=== PATIENT | female | born 1955 | race Caucasian/White ===

== ENCOUNTER 2016-08-11 08:23 | Outpatient (CLI) | payer OTHER ==
[2016-08-11 09:15] LABS: ALT (SGPT) 17 U/L (0-55); AST (SGOT) 22 U/L (5-34); Albumin 4.2 g/dL (3.5-5.0); Alkaline Phosphatase 63 U/L (40-150); Anion Gap 15 mmol/L (10-20); BUN (Urea Nitrogen) 16 mg/dL (9.8-20.1); Bilirubin, Direct 0.2 mg/dL (0.1-0.3); Bilirubin, Total 0.5 mg/dL (0.2-1.2); Calc. Creatinine Clearance 0 mL/min (70-130); Calcium 9.6 mg/dL (7.8-10.44); Carbon Dioxide 24 mmol/L (22-29); Cardiac Risk 3.3 (Less than 4.5); Chloride 106 mmol/L (98-107); Cholesterol 166 mg/dL (< 200 Desired); Estimated GFR-MDRD 81; Glucose 91 mg/dL (70-105); HDL Cholesterol 50 mg/dL (>60 Neg Risk); LDL Cholesterol, Calculated 101 mg/dL; Potassium 4.4 mmol/L (3.5-5.1); Protein, Total 7.3 g/dL (6.0-8.3); Sodium 141 mmol/L (136-145); Triglycerides 76 mg/dL (Less than 150)
== END 2016-08-11 08:24 | disposition home or self-care (01) ==
LOC: MADLABBHPM 08:23
PROVIDERS: ATTEND Family Medicine
DX: I10 Essential (primary) hypertension (principal)
CPT/HCPCS: 36415; 80048; 80061; 80076

== ENCOUNTER 2017-02-06 10:47 | Outpatient (CLI) | payer BC, OTHER ==
[2017-02-06 11:36] LABS: #Basophils 0.1 thou/uL (0.0-0.2); #Eosinphils 0.1 thou/uL (0.0-0.7); #Lymphocytes 1.7 thou/uL (1.20-3.40); #Monocytes 0.6 thou/uL (0.11-0.59); #Neutrophils 3.6 thou/uL (1.40-6.50); %Basophils 1.1 % (0.0-1.0); %Eosinophils 1.8 % (0.0-10.0); %Lymphocytes 28.5 % (21.0-51.0); %Monocytes 9.2 % (0.0-10.0); %Neutrophils 59.4 % (42.0-75.0); Hemoglobin 14.5 g/dL (12.0-16.0); Mean Corpuscular HGB CONC 33.3 g/dL (32.0-36.0); Mean Corpuscular Hemoglobin 29.6 pg (27.0-31.0); Mean Platelet Volume 7.5 fL (7.4-10.4); Platelet Count 269 thou/uL (130-400)
[2017-02-06 11:39] LABS: ALT (SGPT) 32 U/L (8-55); AST (SGOT) 27 U/L (5-34); Albumin 4.3 g/dL (3.5-5.0); Alkaline Phosphatase 65 U/L (40-150); Anion Gap 14 mmol/L (10-20); BUN (Urea Nitrogen) 12 mg/dL (9.8-20.1); Bilirubin, Direct 0.2 mg/dL (0.1-0.3); Bilirubin, Total 0.5 mg/dL (0.2-1.2); Calc. Creatinine Clearance 0 mL/min (70-130); Calcium 9.9 mg/dL (7.8-10.44); Carbon Dioxide 25 mmol/L (22-29); Chloride 105 mmol/L (98-107); Cholesterol 164 mg/dl (< 200 Desired); Estimated GFR-MDRD 82; Glucose 87 mg/dL (70-105); HDL Cholesterol 54 mg/dL (>60 Neg Risk); LDL Cholesterol, Calculated 90 mg/dL; Potassium 4.3 mmol/L (3.5-5.1); Sodium 140 mmol/L (136-145); Triglycerides 102 mg/dL (Less than 150)
== END 2017-02-06 10:48 | disposition home or self-care (01) ==
LOC: MADLABBHPM 10:47
PROVIDERS: ATTEND Family Medicine
DX: E78.00 Pure hypercholesterolemia, unspecified (principal); I10 Essential (primary) hypertension
CPT/HCPCS: 36415; 80048; 80061; 80076; 84443; 85025

== ENCOUNTER 2021-01-10 15:21 | Outpatient (CLI) | payer BC | END 2021-01-10 15:22 | disposition home or self-care (01) | LOC: MADRAD 15:21 | PROVIDERS: ATTEND Family Medicine | DX: R07.89 Other chest pain (principal) | CPT/HCPCS: 71046 ==